=== PATIENT | male | born 1995 | race African-American/Black ===

== ENCOUNTER 2016-08-31 07:45 | Emergency (ER) | payer BC ==
[~2016-08-31] VITALS: Ht 175.2 cm; Wt 74.8 kg
[~2016-08-31 07:45] MED LIST: CLARITIN10 MG PO; MOTRIN800 MG PO; NKHM; ZITHROMAX Z PA250 MG PO
[2016-08-31 07:51] VITALS: BP 132/58
[2016-08-31] MEDS ORDERED: AMOXICILLIN500 M2 PO (09:45)
== END 2016-08-31 09:54 | disposition home or self-care (01) ==
LOC: ED 07:45
DX: S60.462A Insect bite (nonvenomous) of right middle finger, initial encounter (principal); F17.200 Nicotine dependence, unspecified, uncomplicated; W57.XXXA Bitten or stung by nonvenomous insect and other nonvenomous arthropods, initial encounter; Y93.89 Activity, other specified; Y92.9 Unspecified place or not applicable; Y99.9 Unspecified external cause status